=== PATIENT | female | born 2000 | race Caucasian/White ===

== ENCOUNTER → 2021-06-26 14:23 | Outpatient (CLI) | payer OTHER, SELFPAY | PROVIDERS: Referring Provider Family Medicine; Visit Provider Family Medicine | DX: Z23 Encounter for immunization (principal) ==

== ENCOUNTER 2021-09-03 09:11 | Emergency (ER) | payer OTHER, SELFPAY ==
[2021-09-03 09:12] VITALS: BP 143/89; PULSE 117; RESP 16; TEMP 36.1; O2SAT 98; BMI 21.6
--- NOTE | 2021-09-03 09:34 | RAD_ITS ---
STUDY: X-RAY - LEFT KNEE REASON FOR EXAM: Female, 21 years old. injury TECHNIQUE: 4 view(s) of the knee. COMPARISON: None. FINDINGS: Normal visualized distal femur. Normal visualized proximal tibia and fibula. Normal proximal tibiofibular articulation. Lateral subluxation of patella possibly related to recent patellar dislocation. Normal medial femorotibial compartment. Normal lateral femorotibial compartment. Normal patellofemoral articulation. There is a large volume joint effusion. The soft tissue structures are unremarkable. RAD/Knee 4 or More Views IMPRESSION: Suspect recent patellar dislocation with persistent lateral subluxation of the large joint effusion. MRI would be useful. Electronically Signed: Presley Roberts MD at 10:21 EST ,
--- NOTE | 2021-09-03 09:35 | EDS_ITS ---
HPI History of Present Illness Chief Complaint: Lower Extremity Injury Detail of Chief Complaint: Left knee injury Informant: patient Narrative Narrative: Patient presents to the emergency department with complaint of injury to the left knee that occurred last evening around 9:15 PM. Patient states that she was taking her sweatpants off and did not take her shoes off prior to doing that and the pant leg got caught on the shoe causing her to fall. Patient felt like her kneecap dislocated but then popped back in. Patient states that she has had prior knee dislocations every couple years but is never had surgery for it. She came in today because she is having continued pain and swelling and having hard time bearing weight. PFSH PFSH Home Medications hydrocodone-acetaminophen 1 tab PO Q4H PRN PRN 3 Days #20 tablet 09/03/21 [Rx Last Taken Unknown] norethindrone-e.estradiol-iron [Lo Loestrin Fe] 1 tab PO DAILY 09/03/21 [History Last Taken Unknown] sertraline 150 mg PO DAILY 09/03/21 [History Last Taken Unknown] Allergy/AdvReac Type Severity Reaction Status Date / Time No Known Allergies Allergy Verified 09/03/21 09:13 Social History Smoking Status: Never smoker ROS ROS ED Constitutional Constitutional ED: Reports systems reviewed and no addt'l complaints, except as documented; Denies body ache(s), change in weight or chills Eyes Eyes: Denies acute decrease in peripheral vision, change in vision, double visio n or loss of vision ENT ENT ED: Reports none; Denies ear pain, lip swelling, loss taste/smell, neck reno n, otalgia or sore throat Cardiovascular Cardiovascular: Reports none; Denies abdominal pain, chest pain with activity, leg edema, lightheadedness, palpitations, rapid heart rate or syncope Respiratory/Chest Respiratory/Chest: Reports none; Denies change in mental status, dry cough, dyspnea, hemoptysis, shortness of breath at rest or shortness of breath with exertion Gastrointestinal Gastrointestinal: Reports none; Denies abdominal pain, change in stool character, diarrhea, hematemesis, hematochezia, melena, rectal bleeding or vomiting Genitourinary Genitourinary ED: Reports none; Denies abdominal discomfort, anuria, dysuria, genital pain or polyuria Musculoskeletal Musculoskeletal: Reports none and other Details: Left knee pain ; Denies arthralgias, back pain, difficulty walking, extremity pain, muscle weakness or myalgias Integumentary Reports none; Denies abscess or rash Neurologic Neurologic: Reports none; Denies abnormal gait, confusion, focal weakness, frequent falls, headache(s), loss of vision, numbness, paresthesias, radicular pain, vertigo or weakness Psychiatric Psychiatric: Reports systems reviewed and no addt'l complaints, except as documented and none; Denies behavioral changes, confusion, difficulty concentrating, hallucinations, suicidal ideation, tactile hallucinations or visual hallucinations Endocrine Endocrinology: Denies none, cold intolerance, excessive sweating, fatigue or heat intolerance Hematologic/Lymphatic Hematologic/Lymphatic: Reports none; Denies anemia, easy bleeding or easy bruising Allergic/Immunologic Allergic/Immunologic ED: Denies as per HPI, none, lip swelling, mouth swelling, throat swelling, tongue swelling or hives EXAM Physical Exam Const Vital Signs: 09/03/21 09:12 Temperature 97.0 F L Temperature Source Temporal Pulse Rate 117 H Respiratory Rate 16 Blood Pressure 143/89 H Blood Pressure Mean 107 Pulse Ox 98 Oxygen Delivery Method Room Air Positive well nourished and well developed General Appearance ED: well developed and NAD HEENT Reports TM's clear and moist mucous membranes normocephalic and atraumatic; Negative for trauma or tenderness Tympanic Membrane ED: Yes TM's clear Eyes PERRL and EOMs intact bilaterally General Eye ED: Negative for pale conjunctiva or scleral icterus Neck no lymphadenopathy, supple and no JVD General: Negative for tenderness Chest Wall inspection of chest normal and palpation of chest normal Chest: Negative for tenderness Resp normal respiratory effort and clear to auscultation bilaterally Effort and Inspection: Negative for respiratory distress or pain with movement Auscultation: Negative for rhonchi, wheezes or diminished lung sounds Cardio regular rate, regular rhythm, S1 normal heart sound, S2 normal heart sound and no murmurs Peripheral Pulses: pulses 2+ throughout GI normal to inspection, nondistended, normoactive bowel sounds, soft to palpation, non-tender, non-distended and no masses Back/Spine no CVA tenderness and no thoracic nor lumbar tenderness Extremity Extremity Narrative: Evaluation of the left knee reveals diffuse soft tissue swelling with joint effusion. She has limited range of motion in flexion extension secondary to pain. There does not appear to be a patellar dislocation and the patella seems to track normally with limited range of motion. She does not tolerate ligamentous exam. She is neurovascular intact distally. General Extremety ED: Yes edema General Extremity: edema Neuro oriented x3, CN's II-XII intact bilaterally, no sensory deficits noted and gait normal Sensorium / Orientation: awake, alert, oriented to person, oriented to place and oriented to time Motor Exam: strength 5/5 throughout and strength abnormal Psych mental status grossly normal Skin no rashes or lesions noted and no wounds MDM MDM MDM Narrative Medical decision making narrative: 4 view x-rays of the left knee obtained interpreted by myself as no acute fractures. Patient was noted to have joint effusion. At this point exam is limited secondary to patient's pain and she is having hard time lifting her leg up off the bed secondary to pain and swelling. I do not feel an obvious defect in the prepatellar tendon. Patient will be placed in a knee immobilizer and given referral to orthopedics for follow-up. She will be given a prescription for [employer] for pain and crutches. Discharge Plan Triage Chief Complaint: Lower Extremity Injury ED Provider: Yolanda Wills Dx/Rx/DC Orders Clinical Impression: Lateral subluxation of left patella, Knee sprain Instructions: ED Knee Sprain, ED Patellar Dislocation/Subluxation Prescriptions: New hydrocodone-acetaminophen [hydrocodone-acetaminophen] 1 TABLET tablet 1 tab PO Q4H PRN PRN (Reason: Pain) 3 Days Qty: 20 RF: 0 No Action sertraline 100 mg tablet 150 mg PO DAILY RF: 0 Lo Loestrin Fe 1 mg-10 mcg (24)/10 mcg (2) tablet 1 tab PO DAILY RF: 0 Primary Care Provider: Care Physician,No Primary Referrals: Ga Wray DO [STAFF PHYSICIAN] - 3-5 Days Care Physician,No Primary [Primary Care Provider] - Disposition Disposition: Home, Self Care
[2021-09-03] MEDS: HYDROcodone Bitartrate/Apap 5/325 Tablet PO (11:06)
[2021-09-03 11:44] VITALS: RESP 16
== END 2021-09-03 11:44 | disposition home or self-care (01) ==
PROVIDERS: Emergency Provider Emergency Medicine; PCP Pediatrics; Visit Provider Emergency Medicine
DX: S83.012A Lateral subluxation of left patella, initial encounter (principal); W19.XXXA Unspecified fall, initial encounter; Y93.89 Activity, other specified; Y99.9 Unspecified external cause status; Y92.9 Unspecified place or not applicable
CPT/HCPCS: 73564; 99284

== ENCOUNTER 2021-09-07 12:29 | Outpatient (CLI) | payer OTHER, SELFPAY ==
--- NOTE | 2021-09-07 12:32 | MRI_ITS ---
STUDY: MRI LEFT KNEE REASON FOR EXAM: Left knee pain, left knee injury 09/02/2021. TECHNIQUE: Standardized fat and water weighted pulse sequences were obtained in all 3 orthogonal planes. COMPARISON: Radiographs 09/03/2021. FINDINGS: Normal medial meniscus. Normal hyaline cartilage of the medial femorotibial compartment. Normal medial femoral condyle and tibial plateau. Normal medial collateral ligamentous complex (MCL). Normal distal semimembranosus, gracilis and semitendinosus tendons. Normal lateral meniscus. Normal hyaline cartilage of the lateral femorotibial compartment. There is an osteochondral fracture of the peripheral lateral femoral condyle (proton-density coronal images 12-14) with an adjacent free fragment (T2 axial images 16-18). Normal proximal tibiofibular articulation. Normal lateral collateral (fibular) ligament. Normal popliteus tendon. Normal biceps femoris tendon. Normal anterior cruciate ligament (ACL). Normal posterior cruciate ligament (PCL). There is lateral tilt and lateral subluxation of the patella at the time of this examination. There is a chondral defect of the patella near the median ridge (T2 sagittal image 11) measuring approximately 1 cm in length with an adjacent intra-articular body (T2 sagittal image 12). There is a small chondral tear of the medial patellar facet (T2 axial image 14). There is a sprain of the medial patellofemoral ligament (T2 axial image 14). Normal quadriceps tendon. Normal patellar tendon. Normal Hoffa''s fat pad. There is a moderately large lipohemarthrosis. The is a low-grade strain of the distal vastus lateralis muscle (T2 coronal images 13-15). There is edema in the subcutis adipose space. There is a bone contusion of the medial patellar facet (T2 axial images 14-16). MRI/Lower Ext Joint Only (Routine) IMPRESSION: Transient patellar dislocation with osteochondral fracture of the peripheral aspect of the lateral femoral condyle, bone contusion of the medial patella and sprain of the medial patellofemoral ligament. Chondral defect of the patella with adjacent intra-articular body. Low-grade strain of the distal vastus lateralis muscle. Lipohemarthrosis. Electronically Signed: Bam Mallory MD at 14:11 EST ,
== END 2021-09-07 23:59 | disposition home or self-care (01) ==
PROVIDERS: Referring Provider Physician Assistant; Visit Provider Physician Assistant
DX: S83.012A Lateral subluxation of left patella, initial encounter (principal); R52 Pain, unspecified
CPT/HCPCS: 73721